=== PATIENT | male | born 1945 | race Caucasian/White ===

== ENCOUNTER → 2016-06-05 | Outpatient (CLI) | payer OTHER, MEDICARE | LOC: MMPC 11:11 | PROVIDERS: ATTEND Physician Assistant | DX: S61.215D Laceration without foreign body of left ring finger without damage to nail, subsequent encounter (principal) | CPT/HCPCS: 99212; G0463 ==

== ENCOUNTER 2016-06-10 12:11 | Emergency (ER) | payer OTHER, MEDICARE ==
[2016-06-10] MEDS ORDERED: CEPHALEXIN 500 MG CAPSULE PO ONE (12:15)
--- NOTE | 2016-06-10 12:20 | PDOC ---
Hand / Wrist Injury HPI - General Chief Complaint: Upper Extremity Problem/Injury Stated Complaint: swelling left index finger Date Seen by Provider: 06/10/16 Time Seen by Provider: 12:16 Source: POSITIVE: Patient, Spouse Exam Limitations: POSITIVE: No limitations Nurse's Notes Reviewed & Considered: Yes - Record Incomplete - History of Present Illness Initial Comments: Patient comes in today with dehiscence of laceration on his left index finger. Patient had sutures removed on Saturday, and his wound opened up yesterday. Patient comes in for further evaluation today. He has good sensations distally , good capillary refill, good range of motion in his DIP joint. There is increased erythema and swelling with some tenderness in the lateral margins around the laceration. Have you received a tetanus shot in the past 10 years?: Yes Body Location Affected: REPORTS: Upper Extremity (L) (Laceration of the proximal interphalangeal joint, lateral margin, index finger left hand.) Timing: REPORTS: Abrupt Duration: >24 hours Severity: Moderate Location at Time of Onset: REPORTS: Home Context: REPORTS: Laceration Location of Injury: REPORTS: Left, 2nd Finger Quality: REPORTS: Throbbing Modifying Factors: REPORTS: Movement, Rest - Patient Home Medications Home Medications: Home Medications Garlic 1 each PO DAILY 03/08/11 Lo-Dose Aspirin Ec 81 mg ORAL QD tab 03/08/11 [place]-3/Dha/Epa/Fish Oil [[place]-3 Fish Oil 1,000 mg Sfgl] 1,000 mg PO QD Ascorbic Acid [Vitamin C] 1,000 mg PO DAILY tab 06/11/14 Magnesium [Magnesium Gluconate] 400 mg PO DAILY 07/14/14 Arginine 2,000 mg PO QD 05/31/15 Citrulline [Pure L-Citrulline] 600 mg PO QD cap 05/31/15 Multivitamin [Daily Maykel] 1 tab PO DAILY tab 05/31/15 Hydrocodone/Acetaminophen [[place] 5-325 Tablet] 2 tab PO PRN PRN 07/05/15 Blood Sugar Diagnostic [Freestyle Test Strips] 1 each IN 3XW #60 bottle Finasteride 5 mg ORAL QD #90 tab 02/14/16 Hydrochlorothiazide 25 mg ORAL QD #90 tab 02/14/16 Levothyroxine Sodium 1 tab PO QAM #90 tab 02/14/16 Lisinopril 40 mg ORAL DAILY #180 tab 02/14/16 Metformin HCl 1,000 mg PO BID #180 tab 02/14/16 Metoprolol Tartrate 25 mg ORAL BID #180 tab 02/14/16 Simvastatin [Zocor] 40 mg ORAL QD #90 tab 02/14/16 Tadalafil [Cialis] 5 mg PO DAILY #10 02/14/16 Felodipine [Felodipine Er] 1 tab-cap PO QD #90 tab 02/28/16 Amoxicillin/Potassium Clav [Augmentin 875-125 Tablet] 1 tab PO Q12H #14 tab 03/12 - Patient Allergies Allergies/Adverse Reactions: Allergies Allergy/AdvReac Type Severity Reaction Status Date / Time No Known Allergies Allergy Unverified 06/05/16 08:33 Past Medical History - heen HEENT History: Cataracts, Hard of Hearing, Dentures/Partials, Other (please comment) Additional HEENT History: FULL UPPER AND LOWER DENTURES, BILAT HEARING AIDES Cardiovascular History: Hypertension, CAD, Hyperlipidemia Respiratory History: Denies History, Snoring Gastrointestinal History: Other (please comment) Additional Gastrointestinal History: GI BLEED IN 2003 Genitourinary History: Kidney Stones Additional Genitourinary History: CHRONIC HEMATURIA Endocrine History: Type 2 Diabetes (oral), Hypothyroidism Musculoskeletal History: Arthritis, Gout, Back Injury, Other (please comment) Prosthesis or Implant: No Additional Musculoskeletal History: back surgery 06/29/15 Neurological History: Denies History Blood Disorders: Previous Bld Transfusions Psychiatric History: Denies History History of Sexually Transmitted Diseases: No Cancer History: Denies History History of MDRO: No History of Other Communicable Diseases: No Alcohol Use: Occasionally Substance Use Type: None Previous Surgical History: Yes Type / Date of Surgery: IDA/ COLONOSCOPY/ CORONARY ANGIOGRAM/DISCECTOMY MID BACK Anesthesia Reactions: No Malignant Hyperthermia: No Significant Family History: Heart disease, Cancer ROS - Limitations ROS Limitations: No Limitations Constitution: REPORTS: Denies Symptoms Cardiovascular: REPORTS: Denies Cardiac Symptoms Respiratory: REPORTS: Denies Resp Symptoms Neurological: REPORTS: Denies Neuro Symptoms Gastrointestinal: REPORTS: Denies GI Symptoms Endocrine: REPORTS: Denies Symptoms Musculoskeletal: REPORTS: Joint Pain (Left second finger proximal interphalangeal joint.) Genitourinary: REPORTS: Denies Symptoms Eyes: REPORTS: Denies Symptoms ENT: REPORTS: Denies Symptoms Skin: REPORTS: Denies Skin Symptoms Lympathic: REPORTS: Denies Lympathic Symptoms Immunologic: POSITIVE: Denies Symptoms Psychiatric: POSITIVE: Denies Psych Symptoms Hand / Wrist Injury Exam - General Appearance General Appearance: POSITIVE: Alert, Cooperative, No Acute Distress - Extremities Upper Extremity: POSITIVE: Soft Tissue Tenderness, Swelling, Limited ROM Neurovascular / Tendon: POSITIVE: Sensation Normal, Motor Normal, No Vascular Compromise, Tendon Function Normal Skin: POSITIVE: Warm, Dry - HEENT HEENT: POSITIVE: Head Inspection Nml, PERRL, EOMI Hand / Wrist Injury Progress - Patient's Progress Status: POSITIVE: Improved MDM / ED Course: The patient was examined, and received oral Keflex, antibiotic ointment, and a bandage. I was able to contact Dr. Babcock who will be seeing this patient in follow-up Saturday. - Consult Consult (If Yes, Name of Consulting MD & Time Called): Yes (Dr. Babcock 12:30) Consulting MD will see pt:: POSITIVE: In Office Counseled: POSITIVE: Patient, Family, RE: DX, RE: Need for F/U Patient Care Time - Estimated PCT Patient Care Time (In Minutes): 10 Vital Signs - VS Reviewed Vital Signs Reviewed: Yes Discharge Clinical Impression: Wound dehiscence Discharge Disposition: Discharged to Home Condition: Fair Patient Instructions Given at Discharge: Laceration (ED) Follow Up With: JULIA LABOY [Primary Care Provider] - YOSELIN BABCOCK [STAFF PHYSICIAN] -
[2016-06-10 12:38] VITALS: RESP 15; TEMP 97
[2016-06-10] MEDS ORDERED: BACITRACIN 0.9 GM PACKET OINT TOPICAL ONE (12:38)
== END 2016-06-10 12:52 | disposition home or self-care (01) ==
LOC: ER 12:11
DX: T81.33XA Disruption of traumatic injury wound repair, initial encounter (principal); E11.9 Type 2 diabetes mellitus without complications
CPT/HCPCS: 99282

== ENCOUNTER → 2016-06-12 | Outpatient (CLI) | payer OTHER, MEDICARE | LOC: MMPC 10:00 | PROVIDERS: ATTEND Physician Assistant | DX: T81.33XA Disruption of traumatic injury wound repair, initial encounter (principal); S61.211D Laceration without foreign body of left index finger without damage to nail, subsequent encounter | CPT/HCPCS: 99212; G0463 ==

== ENCOUNTER → 2016-08-30 | Outpatient (CLI) | payer OTHER, MEDICARE ==
[2016-08-30 06:42] LABS: BASOPHILS # (AUTO) 0.01 10*3/UL; BASOPHILS % (AUTO) 0.2 % (0-1); EOSINOPHILS # (AUTO) 0.17 10*3/UL; EOSINOPHILS % (AUTO) 3.1 % (0-8); HEMATOCRIT 41.7 % (42.0-52.0); HEMOGLOBIN 14.6 g/dL (14.0-18.0); LYMPHOCYTES # (AUTO) 1.82 10*3/uL; MEAN CORPUSCULAR HEMOGLOBIN 31.2 PG (27-31); MEAN CORPUSCULAR VOLUME 89.1 FL (80-90); MEAN PLATELET VOLUME 10.9 FL (7.4-12.2); MONOCYTES % (AUTO) 14.7 % (5-15); NEUTROPHILS # (AUTO) 2.63 10*3/UL; NEUTROPHILS % (AUTO) 48.5 % (50-80); RED BLOOD COUNT 4.68 10^6/uL (4.70-6.10)
[2016-08-30 06:43] LABS: PLATELET MORPHOLOGY COMMENT NORMAL MORPHOLOGY (NORM); RBC MORPHOLOGY COMMENT NORMAL MORPHOLOGY (NORM); WBC MORPHOLOGY COMMENT NORMAL MORPHOLOGY (NORM)
[2016-08-30 06:55] LABS: CREATININE, URINE 54.1 MG/DL (15-500)
[2016-08-30 06:57] LABS: BUN/CREATININE RATIO 31.25 (6-20); CALCIUM 9.5 mg/dL (8.7-10.7); CHOL/HDL RATIO 2.71 RATIO (0-4.0); LDL CHOLESTEROL,CALCULATED 81.6 mg/dL; SERUM ALBUMIN 4.5 g/dL (3.5-4.8)
[2016-08-30 06:58] LABS: HEMOGLOBIN A1C 6.55 % (4.2-6.0)
== END ==
LOC: LAB 06:12
PROVIDERS: ATTEND Nurse Practitioner
DX: E11.9 Type 2 diabetes mellitus without complications (principal); K21.9 Gastro-esophageal reflux disease without esophagitis; I10 Essential (primary) hypertension; E78.5 Hyperlipidemia, unspecified; E03.9 Hypothyroidism, unspecified; E29.1 Testicular hypofunction; N40.0 Benign prostatic hyperplasia without lower urinary tract symptoms; Z12.5 Encounter for screening for malignant neoplasm of prostate
CPT/HCPCS: 36415; 80053; 80061; 82043; 82550; 83036; 84403; 84443; 85025; G0103

== ENCOUNTER → 2016-09-13 | Outpatient (CLI) | payer OTHER, MEDICARE | LOC: MMPC 11:11 | PROVIDERS: ATTEND Nurse Practitioner | DX: I10 Essential (primary) hypertension (principal); E78.5 Hyperlipidemia, unspecified; E11.9 Type 2 diabetes mellitus without complications; S76.012A Strain of muscle, fascia and tendon of left hip, initial encounter; S76.011A Strain of muscle, fascia and tendon of right hip, initial encounter | CPT/HCPCS: 99214; G0463 ==

== ENCOUNTER → 2016-11-02 | Outpatient (CLI) | payer OTHER, MEDICARE | LOC: MMPC 11:11 | PROVIDERS: ATTEND Nurse Practitioner | DX: G56.03 Carpal tunnel syndrome, bilateral upper limbs (principal) | CPT/HCPCS: 99213; G0463 ==

== ENCOUNTER 2017-04-23 05:57 | Inpatient (IN) ==
[2017-04-23] MEDS ORDERED: Lactated Ringers 1,000 ML PRIMARY IV SCH ×2 (06:00)
[2017-04-23] MEDS ORDERED: Ketorolac Inj 30 MG, Morphine Inj 5 MG, BUPivacaine Inj 0.25% PF 150 MG SPLASH ONE ×3 (06:00)
[2017-04-23] MEDS ORDERED: BUPivacaine Liposome/PF (Exparel) Inj 20ml vial INFIL ONE ×2 (06:00→07:18)
[2017-04-23] MEDS ORDERED: ceFAZolin Inj 2gm (Premix) 2 GM/50 ML BAG IV ONE ×2 (06:00)
[2017-04-23] MEDS ORDERED: LIDOCAINE W/ SODIUM BICARB 0.5 ML SYR ONE (06:00)
[2017-04-23] MEDS ORDERED: LIDOCAINE W/ SODIUM BICARB 0.5 ML SYR SUBD ONE ×2 (06:00)
[2017-04-23] MEDS ORDERED: Lactated Ringers 1,000 ML PRIMARY IV ONE ×4 (06:00→10:45)
[2017-04-23] MEDS ORDERED: TRANEXAMIC ACID 1,000 MG / 10 ML VIAL ONE (07:09)
[2017-04-23] MEDS ORDERED: Sodium Chloride 0.9% 200 ML IV ONE (07:10)
[2017-04-23] MEDS ORDERED: Sodium Chloride 0.9% 500 ML ONE (07:11)
[2017-04-23] MEDS ORDERED: Sodium Chloride 0.9% 0 ML ONE (07:11)
[2017-04-23] MEDS ORDERED: LIDOCAINE 2%/ EPI 1:200,000 - 20 ML VIAL ONE (07:12)
[2017-04-23] MEDS ORDERED: fentaNYL Inj 250 MCG/5 ML VIAL ONE (07:12)
[2017-04-23] MEDS ORDERED: MIDAZOLAM 5 MG/1 ML ONE (07:13)
[2017-04-23] MEDS ORDERED: BUPivacaine Inj 0.5% PF (5mg/ml) 30ml vial ONE (07:13)
[2017-04-23 07:18] LABS: BILIRUBIN,URINE NEGATIVE (NEG); CLARITY,URINE CLEAR (CLEAR); COLOR,URINE YELLOW (Y); GLUCOSE, URINE (UA) NEGATIVE (NEG); NITRATE,URINE NEGATIVE (NEG); OCCULT BLOOD,URINE NEGATIVE (NEG); PH,URINE 5.5 (5.0-8.5); PROTEIN,URINE NEGATIVE (NEG); UROBILINOGEN,URINE 0.2 EU/dL (0.2)
[2017-04-23] MEDS ORDERED: Sodium Chloride 0.9% vial 40 ML ONE (07:18)
[2017-04-23 07:20] LABS: URINE SAMPLE TYPE CLEAN CATCH URINE
[2017-04-23] MEDS ORDERED: PROPOFOL 10 MG/1 ML (200 MG/20 ML) VIAL IV ONE (07:43)
[2017-04-23] MEDS ORDERED: Tranexamic Acid 1,000 MG in Sodium Chloride 0.9% 100 ML IV SCH (07:45)
[2017-04-23] MEDS ORDERED: KETAMINE 100 MG/1 ML - 5 ML ONE (08:49)
[2017-04-23] MEDS ORDERED: Gentamicin Inj 40 MG/ML VIAL ONE (11:29)
[2017-04-23] MEDS ORDERED: HYDROmorphone 2 MG/1 ML IVP PRN ×2 (12:01→13:05)
[2017-04-23] MEDS ORDERED: NORMAL SALINE 10 ML SYRINGE FLUSH IVP PRN ×2 (12:01→13:05)
[2017-04-23] MEDS ORDERED: ONDANSETRON 4 MG/2 ML VIAL IVP PRN ×2 (12:01→13:05)
--- NOTE | 2017-04-23 12:03 | CRNA.PROGR ---
Anesthesia Recovery Phase I - Post Anesthesia Evaluation Patient's Condition on Arrival in Phase I: Stable Pain Level: 0
--- NOTE | 2017-04-23 12:06 | CRNA.PROCE ---
Nerve Block Documentation - - Safety Measures: Time Out Taken, Site Verified - - Position for Nerve Block: Supine Moniters Used During Block: EKG, SPO2, NIBP Oxygen Supplemented: Yes Sedation Used - Enter Amount in Comment Field [ANES.SEDAT]: Midazolam (mg): Yes (3), Fentanyl (mcg): Yes (100) Skin Prep Used: ChloroPrep Technique: Nerve Stimulator (and US) Nerve Block Needle Used: Indiewalls 50 mm Stimulation Hz: 2 Stimulation Staring mA: 1.4 Stimulation Ending mA: 0.4 Local Anesthetic - Enter Amt in Comment Field [ANES.LOCNB]: 0.5 % Bupivicaine with Epinephrine 1:200,000 (mL): Yes (20ml), 2 % Xylocaine with Epinephrine 1: 200,000 (mL): Yes (20ml) - - PreOp Block : Time In: 07:30 PreOp Block : Time Out: 07:45 - - Additional Details: Adductor canal block Anesthesia Time - Other Weight: 108.409 kg Height: 6 ft 2 in Body Mass Index (BMI): 30.7
--- NOTE | 2017-04-23 12:07 | CRNA.PROGR ---
Anesthesia Time - - Start date: 04/23/17 End date: 04/23/17 - Procedure/Recovery Time Anesthesia : Time In: 08:00 Anesthesia : Time Out: 11:57 Anesthesia : Total Time: 237 - Block Time PreOp Block : Time In: 07:30 PreOp Block : Time Out: 07:45 PreOp Block : Total Time: 15 - Total Anesthesia Time Total Anesthesia Time (minutes): 252 - Other Weight: 108.409 kg Height: 6 ft 2 in Body Mass Index (BMI): 30.7 Anesthesia Type: General Anesthesia : LMA, Other (adductor canal block)
[2017-04-23] MEDS ORDERED: ACETAMINOPHEN 325 MG TABLET PO PRN (13:05)
[2017-04-23] MEDS ORDERED: Ondansetron ODT Tab 8 MG TAB PO PRN (13:05)
[2017-04-23] MEDS ORDERED: BISACODYL 10 MG SUPPOSITORY RECTAL PRN (13:05)
[2017-04-23] MEDS ORDERED: HYDROcodone-APAP 7.5 MG-325 MG TABLET PO PRN (13:05)
[2017-04-23] MEDS ORDERED: CALCIUM CARBONATE 500 MG (TUMS) CHEWABLE TABLET PO PRN (13:05)
[2017-04-23] MEDS ORDERED: EPA PO SCH (13:05)
[2017-04-23] MEDS ORDERED: diphenhydrAMINE 25 MG CAPSULE PO PRN (13:05)
[2017-04-23] MEDS ORDERED: BISACODYL 5 MG TABLET PO PRN (13:05)
[2017-04-23] MEDS ORDERED: MAG HYDROX/AL HYDROX/SIMETH 30 ML SUSP PO PRN (13:05)
[2017-04-23] MEDS ORDERED: DHA PO SCH (13:05)
[2017-04-23] MEDS ORDERED: Prochlorperazine Tab 10 MG TAB PO PRN (13:05)
[2017-04-23] MEDS ORDERED: FISH OIL PO SCH (13:05)
[2017-04-23] MEDS ORDERED: OMEGA PO SCH (13:05)
[2017-04-23] MEDS ORDERED: BLOOD SUGAR DIAGNOSTIC IN SCH (13:05)
--- NOTE | 2017-04-23 13:54 | CONSULT ---
Consult Note - Consult Consult Date: 04/23/17 Reason for Consult: PostOp Consulation : Ortho Requesting Physician: Dr. Babcock Primary Care Provider: Solomon Moffett MD - History of Present Illness History of Present Illness: This is a 72 years old male with medical history significant for history of diabetes, apparently was borderline and he lost significant weight and the was told recently by his the physician to lower the metformin then DC it, hypertension, hypothyroidism, hyperlipidemia, osteoarthritis who came in to have the medial compartment replacement of the left knee and was done by Dr. Babcock today. The hospitalist service were consulted for management of medical issues. The patient currently denying symptoms. There is no pain, no shortness of breath, no chest pain no nausea. Past Medical History Medical History: 1. History of diabetes he is on metformin, apparently he lost significant weight and the his blood sugars under control and was told by Dr. Ortiz 2 weeks ago to stop the metformin however he continued to take it but at a lower dosage. 2. Hypertension. 3. Hyperlipidemia. 4. Hypothyroidism. 5. Osteoarthritis. 6. Hearing loss. 7. History of BPH Surgical History: 1. Cholecystectomy. 2. History of back surgery Family History: Reviewed an Not Pertinent Past Social History: Patient used to smoke quit many years ago, occasionally drink, no drugs. Tobacco Use: Former Smoker In the Past 12 Months, Have Used or Abuse Any of the Following Substance: None Alcohol Use: Occasionally Review of Systems - Review of Systems All Systems: Reviewed & No Additional Complaints Except as Stated Medication / Allergies Home Medications: Home Medications Medication Instructions Recorded Confirmed Type Garlic 1 ea PO DAILY 03/08/11 04/23/17 History Lo-Dose Aspirin Ec 81 mg ORAL QD tab 03/08/11 04/23/17 History [place]-3/Dha/Epa/Fish Oil [[place]-3 1,000 mg PO QD 03/08/11 04/23/17 History Fish Oil 1,000 mg Sfgl] Ascorbic Acid [Vitamin C] 1,000 mg PO DAILY tab 06/11/14 04/23/17 History Magnesium [Magnesium Gluconate] 400 mg PO DAILY 07/14/14 04/23/17 History Multivitamin [Daily Maykel] 1 tab PO DAILY tab 05/31/15 04/23/17 History Blood Sugar Diagnostic [Freestyle 1 ea IN 3XW #60 bottle 02/14/16 04/23/17 Rx Test Strips] Finasteride 1 tab ORAL QD #90 tab 09/13/16 04/23/17 Rx Lisinopril 1 tab ORAL DAILY #180 tab 09/13/16 04/23/17 Rx Metoprolol Tartrate 1 tab ORAL BID #180 tab 09/13/16 04/23/17 Rx Simvastatin [Zocor] 1 tab ORAL QHS #90 tab 09/13/16 04/23/17 Rx felodipine ER 5 mg tablet,extended 5 mg PO QDAY #90 tab 02/06/17 04/23/17 Rx release 24 hr hydrochlorothiazide 25 mg tablet 25 mg PO QDAY #90 tab 02/06/17 04/23/17 Rx levothyroxine 88 mcg tablet 88 mcg PO QAM #90 tab 02/06/17 04/23/17 Rx Metformin HCl 1 tab PO DAILY 04/23/17 04/23/17 History Allergies/Adverse Reactions: Allergies 3 Allergy/AdvReac Type Severity Reaction Status Date / Time oxycodone AdvReac Mild NOT Verified 04/23/17 13:27 APPLICABLE Exam - Vitals Vital Signs: Vital Signs Temperature 96.7 F Temperature Source Temporal Artery Scan Pulse Rate [Pulse Oximeter] 70 Pulse Rate 72 Respiratory Rate 20 Blood Pressure [Left Arm] 133/80 Blood Pressure 112/68 Pulse Ox 96 Oxygen Flow Rate 2.5 Oxygen Delivery Method Nasal Cannula Height 6 ft 2 in Weight 239 lb - General General Appearance: No Acute Distress, Cooperative, Obese - Head Head Exam: Normal Inspection, Atraumatic - Eye Eye Exam: POSITIVE: Normal Appearance - ENT ENT Exam: POSITIVE: Normal Exam - Neck Neck Exam: Normal Inspection - Respiratory Respiratory Exam: POSITIVE: Clear to Auscultation - Bilaterally - Cardiovascular Cardiovascular Exam: POSITIVE: RRR - GI/Abdominal GI/Abdominal Exam: POSITIVE: Normal Bowel Sounds, Non Tender, Non Distended - External Exam: POSITIVE: Deferred - Extremities Additional Extremities Exam Details: Dressing applied to the left knee. - Back Back Exam: POSITIVE: Normal Inspection - Neurological Neurological Exam: POSITIVE: Alert, Oriented x 3, CN II-XII Intact, Speech Intact / Clear - Psychiatric Psychiatric Exam: POSITIVE: Normal Affect Assessment and Plan - Patient Problems (1) Status post unicompartmental knee replacement, left Current Visit: Yes Status: Acute Comment: Management per Dr. Babcock pain medication were written, for DVT prophylaxis will put him on Lovenox. Code(s): Z96.652 - Presence of left artificial knee joint (2) Diabetes Current Visit: Yes Status: Acute Comment: Seem to be controlled think we'll continue with the metformin here. Will check his blood sugar when necessary. Code(s): E11.9 - Type 2 diabetes mellitus without complications (3) Hypertension Current Visit: Yes Status: Acute Comment: I think we'll hold off on the lisinopril tomorrow we'll see what his blood pressure continue with hydrochlorothiazide and metoprolol and Plendil. Code(s): I10 - Essential (primary) hypertension (4) Hypothyroidism Current Visit: Yes Status: Acute Comment: Same medications Code(s): E03.9 - Hypothyroidism, unspecified (5) Hyperlipidemia Current Visit: Yes Status: Acute Comment: Same med Code(s): E78.5 - Hyperlipidemia, unspecified
[2017-04-23] MEDS: Lactated Ringers 1,000 ML PRIMARY IV SCH (14:17)
--- NOTE | 2017-04-23 15:19 | ORTHO.OP ---
- - -: See Dictated Operative Report Procedure Codes - Lower Extremity/Knee Procedures Primary Lower Extremity Procedure Code: 56887 : [facility] (Leeann BAJWA assisted)
--- NOTE | 2017-04-23 15:22 | ORTHO.PROG ---
Last Taken Vital Signs: Vital Signs - Last Taken Temperature 96.7 F L 04/23/17 13:39 Pulse Rate 70 04/23/17 13:39 Respiratory Rate 20 04/23/17 13:39 Blood Pressure 133/80 04/23/17 13:39 Pulse Ox 93 04/23/17 15:00 Subjective: Patient doing well with minimal to no pain Objective: Patient can do straight leg raise. Patient with normal motor and apparently sensory in the lower extremity. Good pulses brisk refill no distal swelling or edema dressing is in place. Intake and Output - 8hrs 04/22/17 04/23/17 04/23/17 04/23/17 21:59 05:59 13:59 21:59 Intake: IV 3850 / 3850 Output: Output, Urinary Catheter Amount 35 / 35 Output, Estimated Blood Loss 200 / 200 Amount Other: Weight 108.409 kg Vital Signs (24 hrs) Temp Pulse Pulse Resp BP BP Pulse Ox 04/23/17 15:00 93 04/23/17 13:39 96.7 F L 70 20 133/80 96 04/23/17 13:30 96.7 F L 73 18 127/76 94 04/23/17 13:08 97.2 F 70 20 133/80 96 04/23/17 13:05 96.8 F 73 16 125/74 94 04/23/17 12:50 97.2 F 74 17 121/74 94 04/23/17 12:35 97.4 F 71 17 115/67 94 04/23/17 12:25 97.4 F 68 13 120/70 95 04/23/17 12:20 97.4 F 69 18 121/72 94 04/23/17 12:15 97.5 F 70 19 125/77 93 04/23/17 12:10 97.5 F 72 14 123/78 94 04/23/17 12:05 97.5 F 72 14 112/68 97 04/23/17 11:58 98.2 F 60 13 113/68 95 04/23/17 11:55 98.2 F 60 11 L 114/67 95 04/23/17 06:30 96.9 F 65 18 122/79 97 Assessment: Left medial unicompartmental knee replacement doing well Plan: Deep vein thromboses prophylaxis with sequentials and Lovenox subcutaneous Have physical therapy work with patient this afternoon. Ice and elevation with pain control
[2017-04-23] MEDS: ceFAZolin Inj 2gm (Premix) 2 GM/50 ML BAG IV SCH (16:14)
[2017-04-23] MEDS: Metoprolol TARTRATE Tab 25 MG TAB PO SCH (20:20)
[2017-04-23] MEDS: DOCUSATE 100 MG CAPSULE PO SCH (20:20)
[2017-04-23] MEDS ORDERED: Simvastatin Tab 40 MG TAB PO SCH (21:00)
--- NOTE | 2017-04-23 21:16 | DI ---
XR KNEE 1 OR 2 VWS,04/23/2017 12:06 PM: Clinical History: Left hemiarthroplasty. Previous Exam: None at this facility. Findings: AP and lateral views of the left knee are obtained, and demonstrate a medial compartment hemiarthropl asty. There is no evidence of hardware loosening. Surrounding soft tissues are prominent. There is loss of joint space within the anterior compartment. Impression: Postsurgical changes as above otherwise unremarkable.
[2017-04-24] MEDS: ceFAZolin Inj 2gm (Premix) 2 GM/50 ML BAG IV SCH (02:11)
[2017-04-24] MEDS ORDERED: LEVOTHYROXINE 88 MCG TABLET PO SCH (05:30)
[2017-04-24] MEDS: Lactated Ringers 1,000 ML PRIMARY IV SCH (06:27)
[2017-04-24 06:44] LABS: Hematocrit [HCT] 37.6 % (42.0-52.0); Hemoglobin [HGB] 12.8 g/dL (14.0-18.0); MEAN CORPUSCULAR VOLUME 92.2 FL (80-90); RED BLOOD COUNT 4.08 10^6/uL (4.70-6.10)
[2017-04-24 06:45] LABS: MEAN CORPUSCULAR HEMOGLOBIN 31.4 PG (27-31); MEAN PLATELET VOLUME 11.4 FL (7.4-12.2)
[2017-04-24 06:53] LABS: BLOOD UREA NITROGEN 22 mg/dL (7-22); BUN/CREATININE RATIO 24.44 (6-20)
[2017-04-24] MEDS ORDERED: MAGNESIUM OXIDE 400 MG TABLET PO SCH (07:00)
--- NOTE | 2017-04-24 08:07 | ORTHO.PROG ---
Last Taken Vital Signs: Vital Signs - Last Taken Temperature 97.5 F 04/24/17 04:07 Pulse Rate 64 04/24/17 04:07 Respiratory Rate 18 04/24/17 04:07 Blood Pressure 146/73 04/24/17 04:07 Pulse Ox 94 04/24/17 04:07 Subjective: Patient has very limited discomfort in the left knee Objective: Dressing is clean and dry, no swelling, motor and sensory exam is intact. Good pulses brisk refill. No calf, popliteal adductor hiatus or thigh pain. Laboratory Results 04/23/17 04/24/17 04/24/17 Range/Units 07:03 05:54 05:54 WBC 15.05 H (4.8-10.8) 10^3/uL RBC 4.08 L (4.70-6.10) 10^6/uL Hgb 12.8 L (14.0-18.0) g/dL Hct 37.6 L (42.0-52.0) % MCV 92.2 H (80-90) FL MCH 31.4 H (27-31) PG MCHC 34.0 (33-37) g/dL RDW Std Deviation 42.7 (39-50) fL RDW Coeff of Peggy 13.1 (11.5-14.5) % Plt Count 185 (140-350) 10*3/uL MPV 11.4 (7.4-12.2) FL Sodium 140 (135-145) meq/L Potassium 3.9 (3.8-5.2) meq/L Chloride 105 (98-112) meq/L Carbon Dioxide 25 (23-33) meq/L Anion Gap 10 (5-20) BUN 22 (7-22) mg/dL Creatinine 0.9 (0.70-1.50) mg/dL BUN/Creatinine Ratio 24.44 H (6-20) Glucose 162 H (78-110) mg/dL Calculated Osmolality 296.0 H (267-292) mOsm/kg Calcium 9.2 (8.7-10.7) mg/dL Blood Type A POSITIVE Antibody Screen Negative Assessment: Left unicompartmental knee replacement doing well Plan: DVT prophylaxis was pneumatics and Lovenox. Patient will continue with physical therapy and occupational therapy. The patient is discharged home we will switch to Xarelto 10 mg by mouth daily starting tomorrow. Patient is going to have the right knee done in approximately a week.
[2017-04-24] MEDS ORDERED: FINASTERIDE 5 MG TABLET PO SCH (09:00)
[2017-04-24] MEDS ORDERED: ENOXAPARIN SODIUM 30 MG/0.3 ML SYRINGE SUBCUT SCH (09:00)
[2017-04-24] MEDS ORDERED: ASCORBIC ACID 500 MG TABLET PO SCH (09:00)
[2017-04-24] MEDS ORDERED: ASPIRIN 81 MG (BABY) CHEWABLE TABLET PO SCH (09:00)
[2017-04-24] MEDS ORDERED: FELODIPINE ER 5 MG TABLET PO SCH (09:00)
[2017-04-24] MEDS ORDERED: metFORMIN 500 MG TABLET PO SCH (09:00)
[2017-04-24] MEDS ORDERED: Multivitamin Tab 1 TAB PO SCH (09:00)
[2017-04-24] MEDS ORDERED: HYDROCHLOROTHIAZIDE 25 MG TABLET PO SCH (09:00)
[2017-04-24] MEDS ORDERED: LISINOPRIL 20 MG TABLET PO SCH (09:00)
[2017-04-24] MEDS ORDERED: GARLIC PO SCH (09:00)
--- NOTE | 2017-04-24 09:09 | CRNA.PROGR ---
Anesthesia Note - Progress Notes Anesthesia Progress Note: Post OP Anesthesia note Pt is sitting up in bed alert and oriented, having just eaten breakfast. He denies any residual problems from general anesthesia and has been up ambulating without any difficulty. Pt states he is ready to go home. Current VS are stable. Vital Signs - Last Taken Temperature 97.5 F 04/24/17 04:07 Pulse Rate 64 04/24/17 04:07 Respiratory Rate 18 04/24/17 04:07 Blood Pressure 146/73 04/24/17 04:07 Pulse Ox 94 04/24/17 04:07
[2017-04-24] MEDS: DOCUSATE 100 MG CAPSULE PO SCH (09:22)
[2017-04-24] MEDS: Metoprolol TARTRATE Tab 25 MG TAB PO SCH (09:23)
--- NOTE | 2017-04-24 10:50 | PT.PROG ---
Progress Note Progress Note: S: Pt reports that he is doing very well this AM. States that his knee is sore but not painful. Pt and his are anticipating that pt will be d/c to return home today. O: Tx consisted of: amb x 150 ft with standard walker and knee immobilizer in place with CGA x 1 for safety - required max verbal cuing for safety awareness with walker. Pt received MHP x 20 min to L knee prior to tx. Pt was instructed in ther ex - 10 x each of the following: quad sets, heel slides, SLR, SAQ, hip abd/add, 4 way ankle with red tband, sit to stands. Pt was able to perform an SLR independently and able to perform quad set. Pt amb x 50 ft to stairwell without knee immobilizer as he demo good quad control - required max cuing for safety and CGA x 1. Pt instructed on stairs and performed 1 flight of stairs with max cuing and CGA x 1 for safety. Pt had a seated rest break and his walker was readjusted and pt was re-instructed on how to ambulate safely with standard walker. Pt amb x 100 ft with improved safety and CGA x 1 for safety. A: Pt tolerated exercises well and denied any knee pain with activities. Pt demo safety awareness concerns with walking and with stairs. From a therapy standpoint, pt is unsafe to go home at this time as goals have not been met and will benefit from an afternoon session to review stairs without cuing and work on safety with ambulation to ensure pt is safe to return home. P: Continue per POC.
--- NOTE | 2017-04-24 12:10 | DCSUMMARY ---
Hospitalization Summary Admit Date: 04/23/2017 Discharge Date: 04/24/17 Hospital Course: Discharge diagnoses 1. Left medial unicompartmental knee replacement 2. Hypertension 3. History of diabetes 4. Hyperlipidemia 5. Hypothyroidism 6. History of BPH 7. Hearing loss 8. History of osteoarthritis Hospital course This is a 72 years old male with medical history significant for history of diabetes, apparently was borderline and he lost significant weight and was told recently by his physician to lower the metformin and then DC it, hypertension, hypothyroidism, hyperlipidemia, osteoarthritis who came in to have medial unicompartmental knee replacement of the left knee and was done by Dr. Babcock the hospitalist service were consulted for management of medical issues. I saw the patient post surgery did not have significant symptoms exam was not remarkable. The next day he was seen by Dr. Babcock and he was discharged home. I saw him also on day of discharge he did not have significant symptoms exam was unchanged. He has Supposed to come back again and have the right knee done next week. Dr. Babcock wants him to be on Xarelto the next 4 days and last dose would be Saturday and then he'll come and have surgery on Saturday. I did write a prescription for Xarelto wrote prescription for pain medications. Laboratory Results 04/24/17 04/24/17 Range/Units 05:54 05:54 WBC 15.05 H (4.8-10.8) 10^3/uL RBC 4.08 L (4.70-6.10) 10^6/uL Hgb 12.8 L (14.0-18.0) g/dL Hct 37.6 L (42.0-52.0) % MCV 92.2 H (80-90) FL MCH 31.4 H (27-31) PG MCHC 34.0 (33-37) g/dL RDW Std Deviation 42.7 (39-50) fL RDW Coeff of Peggy 13.1 (11.5-14.5) % Plt Count 185 (140-350) 10*3/uL MPV 11.4 (7.4-12.2) FL Sodium 140 (135-145) meq/L Potassium 3.9 (3.8-5.2) meq/L Chloride 105 (98-112) meq/L Carbon Dioxide 25 (23-33) meq/L Anion Gap 10 (5-20) BUN 22 (7-22) mg/dL Creatinine 0.9 (0.70-1.50) mg/dL BUN/Creatinine Ratio 24.44 H (6-20) Glucose 162 H (78-110) mg/dL Calculated Osmolality 296.0 H (267-292) mOsm/kg Calcium 9.2 (8.7-10.7) mg/dL Discharge instruction Diet regular Activity as tolerated Medications Home Medications Medication Instructions Recorded Confirmed Type Garlic 1 ea PO DAILY 03/08/11 04/23/17 History Lo-Dose Aspirin Ec 81 mg ORAL QD tab 03/08/11 04/23/17 History [place]-3/Dha/Epa/Fish Oil [[place]-3 1,000 mg PO QD 03/08/11 04/23/17 History Fish Oil 1,000 mg Sfgl] Ascorbic Acid [Vitamin C] 1,000 mg PO DAILY tab 06/11/14 04/23/17 History Magnesium [Magnesium Gluconate] 400 mg PO DAILY 07/14/14 04/23/17 History Multivitamin [Daily Maykel] 1 tab PO DAILY tab 05/31/15 04/23/17 History Blood Sugar Diagnostic [[place] 1 ea IN 3XW #60 bottle 02/14/16 04/23/17 Rx Test Strips] Finasteride 1 tab ORAL QD #90 tab 09/13/16 04/23/17 Rx Lisinopril 1 tab ORAL DAILY #180 tab 09/13/16 04/23/17 Rx Metoprolol Tartrate 1 tab ORAL BID #180 tab 09/13/16 04/23/17 Rx Simvastatin [Zocor] 1 tab ORAL QHS #90 tab 09/13/16 04/23/17 Rx felodipine ER 5 mg tablet,extended 5 mg PO QDAY #90 tab 02/06/17 04/23/17 Rx release 24 hr hydrochlorothiazide 25 mg tablet 25 mg PO QDAY #90 tab 02/06/17 04/23/17 Rx levothyroxine 88 mcg tablet 88 mcg PO QAM #90 tab 02/06/17 04/23/17 Rx Metformin HCl 1 tab PO DAILY 04/23/17 04/23/17 History Docusate Sodium [Colace] 100 mg PO BID cap 04/24/17 Rx HYDROcodone/APAP 7.5/325 Tab 1 - 2 tab PO Q4H PRN #30 tab 04/24/17 Rx [[place] 7.5/325 Tab] Rivaroxaban [Xarelto] 10 mg PO DAILY #4 tab 04/24/17 Rx Follow-up patient will come in next week and have surgery done Dr. Babcock. Condition at discharge stable for discharge Exam - Vitals Vital Signs: Vital Signs Temperature 98 F Temperature Source Temporal Artery Scan Pulse Rate [Pulse Oximeter] 82 Pulse Rate 71 Respiratory Rate 20 Blood Pressure [Left Arm] 134/81 Blood Pressure 115/67 Pulse Ox 92 Oxygen Flow Rate 1 Oxygen Delivery Method Room Air Height 6 ft 2 in Weight 239 lb - General General Appearance: No Acute Distress, Cooperative - Head Head Exam: Normal Inspection, Atraumatic - Eye Eye Exam: POSITIVE: Normal Appearance - ENT ENT Exam: POSITIVE: Normal Exam - Neck Neck Exam: Normal Inspection - Respiratory Respiratory Exam: POSITIVE: Clear to Auscultation - Bilaterally - Cardiovascular Cardiovascular Exam: POSITIVE: RRR - GI/Abdominal GI/Abdominal Exam: POSITIVE: Normal Bowel Sounds, Non Tender, Non Distended, Soft - Rectal Rectal Exam: POSITIVE: Deferred - Extremities Additional Extremities Exam Details: Dressing applied to the left knee. - Back Back Exam: POSITIVE: Normal Inspection - Neurological Neurological Exam: POSITIVE: Alert, Oriented x 3, CN II-XII Intact, Moves All Extremities Equally - Psychiatric Psychiatric Exam: POSITIVE: Normal Affect Patient Problems - Patient Problem List (1) Status post unicompartmental knee replacement, left Current Visit: Yes Status: Acute Code(s): Z96.652 - Presence of left artificial knee joint Category: Medical (2) Diabetes Current Visit: Yes Status: Acute Code(s): E11.9 - Type 2 diabetes mellitus without complications Category: Medical (3) Hypertension Current Visit: Yes Status: Acute Code(s): I10 - Essential (primary) hypertension Category: Medical (4) Hypothyroidism Current Visit: Yes Status: Acute Code(s): E03.9 - Hypothyroidism, unspecified Category: Medical (5) Hyperlipidemia Current Visit: Yes Status: Acute Code(s): E78.5 - Hyperlipidemia, unspecified Category: Medical
[2017-04-24 13:12] VITALS: BP 133/93; RESP 18; TEMP 97.8; O2SAT 94
--- NOTE | 2017-04-24 14:35 | PTI REPORT ---
Thank you for the referral of Mike Reddy. He was seen on 04/23/17 for an inpatient evaluation secondary to a left unilateral knee replacement. SUBJECTIVE: The patient is a 72-year-old male who underwent a unilateral knee replacement this morning. The patient states that he is doing well following surgery and reports only mild pain in his left knee. The patient states that he lives here in [place] with his and they live in a four level home with six steps per level. The patient's did state that he can stay on the main level if needed for the first week or so after surgery. The patient reports that prior to surgery he was independent with all ADLs and was able to get around without an assistive device. The patient states that he is scheduled to undergo a right unilateral knee replacement next Saturday. PAST MEDICAL HISTORY: Past medical history can be found in the patient's medical record. OBJECTIVE FINDINGS: General observations: The patient was alert and oriented to setting upon PT arrival. The patient was supine with head of bed elevated. The patient did have a dressing in place on the left knee wrapped with an Gunnar bandage along with an IV and a Garber. The patient was on 1 liter of oxygen. The patient is very hard of hearing and did have a difficult time answering some of the questions due to his hearing loss, but his was able to help with the questions. Pain: The patient reports only mild pain and states he is looking forward to standing up and trying to walk on his leg. Vitals: The patient's blood pressure was taken in a supine position and was 143/ 77. His heart rate was 82 beats per minute. Oxygen saturation on 1 liter of oxygen was 92%. Once seated, the patient's blood pressure was 161/87. His heart rate was 86 beats per minute. Oxygen saturation on 1 liter of oxygen was 92%. While standing the patient's blood pressure was 185/107. His heart rate was 85 beats per minute. Oxygen saturation on 1 liter of oxygen was 93%. After walking the patient's oxygen saturation was at 96%. Bed mobility: A knee immobilizer was placed around the patient's left leg prior to the patient transferring from a supine to seated position. The patient was able to move from supine to seated edge of bed independently. The patient denied any lightheadedness or dizziness. Transfers: The patient transferred from a seated to standing position with contact guard assist x1 for safety. In a standing position, the patient stated that he felt lightheaded and slightly dizzy. This lasted approximately one minute. After the patient's dizziness dissipated, he stated he would like to try walking with the walker. Ambulation: The walker was adjusted to the patient's proper height and the patient ambulated 25 feet and made two turns with the walker. The patient then returned to the chair and performed a stand to sit transfer. ASSESSMENT: The patient has good rehab potential. Problem List: Pain in the left knee Decreased active and passive range of motion of the left knee Decreased strength of the left lower extremity Short-Term Goals: To be met by discharge from inpatient: Patient will be able to transfer from bed to stand safely and independently. Patient will be able to ambulate at least 150 feet with standard walker and weight-bearing as tolerated on the left and do so safely. Patient will be able to ascend and descend at least 6 stairs with proper use of the walker. Long-Term Goals: To be met following discharge from inpatient: Patient will attend outpatient physical therapy. The patient is scheduled for a right unilateral knee replacement next Saturday. TREATMENT PLAN: Patient will be seen B.I.D during the week and one time per day over the weekend as an inpatient to work on independence and safety with transfers, increasing ambulation and gait training for stairs, range of motion, and general strengthening activities. INITIAL TREATMENT: Treatment today consisted of the initial evaluation followed by one unit of functional activity. While in the supine position, the patient was instructed on how to perform a quad set and demonstrated good understanding. Following treatment the patient returned to his chair. Chair alarm was set and call light was left within reach. [facility]BLE HOSPITALCrystal
--- NOTE | 2017-04-25 12:34 | PT PM DAY ---
Diagnosis : Left Uni Knee Replacement PM - Physical Therapy S: The patient reports he is hardly having any pain in his knee and believes that after he is finished with his afternoon session with physical therapy, he will be able to go home. O: Today's therapy consisted of the patient ambulating all the way downstairs to therapy with walker, gait belt, and contact guard assistance as well as verbal cues for proper heel/toe gait. He received an application of moist heat pack x20 minutes including set up to his left knee. He performed therapeutic exercises and functional activities including quad sets, heel slides , straight leg raises, short arc quads, hip abduction/adduction, sit to stands, boxes on the #2 box, modified and minute drills. He also received manual therapy in the form of tibial femoral and patellofemoral joint mobilization and passive stretching. His post op dressing was removed and redressed, maintaining the Silver dressing and placing Tegaderm over the area in order for the patient to be able to take a shower. The patient was able to ambulate all the way back upstairs to his room from the physical therapy department with weight-bearing as tolerated, gait belt, and stand by assistance. A: At this time the patient is cleared by physical therapy to go home. P: Patient will be discharged to home. RONIT
== END 2017-04-24 16:00 | disposition home or self-care (01) | DRG 470 ==
LOC: OPS 05:57 → MED/SURG 12:37
PROVIDERS: ADMIT Orthopaedic Surgery; ATTEND Orthopaedic Surgery

== ENCOUNTER 2017-04-30 06:00 | Inpatient (IN) ==
[~2017-04-30 06:00] MED LIST: BUPivacaine Liposome/PF (Exparel) Inj 20ml vial INFIL ONE; Ketorolac Inj 30 MG, Morphine Inj 5 MG, BUPivacaine Inj 0.25% PF 150 MG SPLASH ONE; LIDOCAINE W/ SODIUM BICARB 0.5 ML SYR SUBD ONE; Lactated Ringers 1,000 ML PRIMARY IV SCH; ceFAZolin Inj 2gm (Premix) 2 GM/50 ML BAG IV ONE
[2017-04-30 10:45] LABS: BILIRUBIN,URINE NEGATIVE (NEG); CLARITY,URINE CLEAR (CLEAR); COLOR,URINE YELLOW; GLUCOSE, URINE (UA) NEGATIVE (NEG); NITRATE,URINE NEGATIVE (NEG); OCCULT BLOOD,URINE NEGATIVE (NEG); PROTEIN,URINE NEGATIVE (NEG); UROBILINOGEN,URINE 0.2 mg/dL (0.2)
[2017-04-30 10:52] LABS: BACTERIA,URINE RARE
== END 2017-04-30 11:25 | disposition home or self-care (01) | DRG 554 ==
LOC: OPS 06:00
PROVIDERS: ADMIT Orthopaedic Surgery; ATTEND Orthopaedic Surgery